=== PATIENT | male | born 1985 | race African-American/Black ===

== ENCOUNTER 2020-07-04 17:21 | Inpatient (IN) | payer SELFPAY ==
[2020-07-04] MEDS ORDERED: Dextrose 50% Abboject 50 ML SYRINGE SLOW IVP PRN (22:07)
[2020-07-04] MEDS ORDERED: Dextrose 5% in Water 1,000 ML IV PRN (22:07)
[2020-07-04 22:42] VITALS: BMI 31.4
[2020-07-04] MEDS: Sodium Chloride 0.9% 1,000 ML IV SCH (22:44)
--- NOTE | 2020-07-04 22:55 | PDOC.BPN ---
- Brief Progress Note [id number] dictated
--- NOTE | 2020-07-05 02:30 | HP ---
CHIEF COMPLAINT: Body aches, fatigue, fever, and chills. HISTORY OF PRESENT ILLNESS: Mr. Shine is a 35-year-old male with past medical history of diabetes mellitus and hypertension, presents to [facility] with body aches, fever, and chills for the last few days. The patient has been having fever for the last 2 days. Also, the patient has been having diarrhea. Workup in the emergency room including chest x-ray shows bilateral infiltrates suspicious of viral pneumonia. The patient also was found to be in acute renal failure with elevated creatinine of more than 2. The patient denies any past renal issues. Also, he was found to have elevated blood glucose. Glucose was more than 400, at 446. Creatinine was 2.62. WBC is 8.5, hemoglobin 13.7, and platelets 247. Septic workup done in the ED. Started on IV antibiotics. The patient sent to our medical facility for continued management. COVID-19 test sent, results are pending. The patient is being admitted to hospital for further management. PAST MEDICAL HISTORY: 1. Hypertension. 2. Hyperlipidemia. PAST SURGICAL HISTORY: Reviewed and not pertinent. FAMILY HISTORY: Reviewed and noncontributory. HOME MEDICATIONS: See home medication reconciliation form for updated medications. ALLERGIES: NO KNOWN ALLERGIES. SOCIAL HISTORY: He denies smoking, drug use, or alcohol use. REVIEW OF SYSTEMS: Review of 14 systems is negative except what is mentioned in the history of present illness. PHYSICAL EXAMINATION: GENERAL: The patient is awake, alert, does not appear to be in acute distress. VITAL SIGNS: Blood pressure is 140/90, oxygen saturation 95% on room air, respiratory rate is 16, and temperature 99.6. HEAD AND NECK: Normocephalic, atraumatic. Neck is supple. No JVD. CHEST: Fair bilateral air entry. HEART: S1, S2. Regular. ABDOMEN: Soft, nontender. Bowel sounds present. NEUROLOGIC: Awake, alert, oriented. No focal deficit. PSYCH: Unable to assess. EXTREMITIES: No clubbing. No cyanosis. LABORATORY DATA: As mentioned above in the history of present illness. IMAGING DATA: Chest x-ray as mentioned above in the history of present illness. ASSESSMENT: 1. Acute kidney injury/acute renal failure. 2. Suspected COVID-19 virus infection. 3. Pneumonia, probably viral. 4. Hypertension. 5. Diabetes mellitus with hyperglycemia. PLAN: 1. Admit. 2. COVID-19 test sent, we will follow the results. 3. Isolation precautions for now. 4. IV fluids were started for acute kidney injury. We will continue it judiciously and reassess in a.m. 5. Monitor kidney function and urine output. 6. Monitor and control blood glucose. 7. Reconcile home medications. 8. DVT prophylaxis as appropriate. 9. Expected length of stay, 2 midnights. Job ID: [id number]
[2020-07-05 05:42] LABS: SARS-CoV-2 MS2 Positive; SARS-CoV-2 N Gene Positive; SARS-CoV-2 S Gene Positive; SARS-CoV-2 by NAA DETECTED (NotDetected); SARS-CoV-2 orf1ab Positive
[2020-07-05 05:46] LABS: #Lymphocytes 1.1 thou/uL (1.20-3.40); #Monocytes 0.5 thou/uL (0.11-0.59); #Neutrophils 7.4 thou/uL (1.40-6.50); %Basophils 0.2 % (0.0-1.0); %Eosinophils 0.1 % (0.0-10.0); %Lymphocytes 11.8 % (21.0-51.0); %Monocytes 5.4 % (0.0-10.0); %Neutrophils 82.5 % (42.0-75.0); Hemoglobin 12.8 g/dL (14.0-18.0); Mean Corpuscular HGB CONC 34.5 g/dL (32.0-36.0); Mean Corpuscular Hemoglobin 29.8 pg (27.0-31.0); Mean Corpuscular Volume 86.4 fL (78.0-98.0); Mean Platelet Volume 7.4 fL (7.4-10.4); Platelet Count 277 thou/uL (130-400); RBC Distribution Width 12.5 % (11.5-14.5)
[2020-07-05 06:10] LABS: Anion Gap 15 mmol/L (10-20); BUN (Urea Nitrogen) 28 mg/dL (8.9-20.6); Calc. Creatinine Clearance 68 mL/min (70-130); Calcium 7.7 mg/dL (7.8-10.44); Carbon Dioxide 21 mmol/L (22-29); Chloride 100 mmol/L (98-107); Glucose 333 mg/dL (70-105); Potassium 3.4 mmol/L (3.5-5.1); Sodium 133 mmol/L (136-145)
[2020-07-05] MEDS: HumaLOG 300 UNITS/3 ML VIAL SC PRN ×3 (06:36→16:47)
[2020-07-05] MEDS: Guaifenesin DM 100-10/5 ML UDCUP PO PRN ×3 (08:06→20:45)
[2020-07-05] MEDS: Famotidine/PF 20 mg/2ml Vial SLOW IVP SCH ×2 (08:07→20:45)
[2020-07-05] MEDS: Acetaminophen 325 MG TAB PO PRN ×2 (08:07→15:26)
[2020-07-05] MEDS: Sodium Chloride 0.9% 1,000 ML IV SCH (08:21)
[2020-07-05 10:29] LABS: Hemoglobin A1c Greater than 14.0 % (4.0-6.0)
[2020-07-05] MEDS ORDERED: cefTRIAXone\\ROCEPHIN 1 GM in Sodium Chloride 0.9% 100 ML IVPB SCH (16:00)
[2020-07-05] MEDS ORDERED: Azithromycin 500 MG in Sodium Chloride 0.9% 250 ML 250 ML IVPB SCH (17:00)
[2020-07-05] MEDS ORDERED: FLU VACC QS2020-21(6MOS UP)/PF 60 MCG/0.5 ML SYRINGE IM ONE (21:00)
[2020-07-06] MEDS: Sodium Chloride 0.9% 1,000 ML IV SCH ×4 (00:45→23:48)
[2020-07-06] MEDS: HumaLOG 300 UNITS/3 ML VIAL SC PRN ×2 (06:18→11:25)
[2020-07-06] MEDS: Guaifenesin DM 100-10/5 ML UDCUP PO PRN ×3 (06:25→21:37)
[2020-07-06] MEDS ORDERED: Insulin Glargine 20 UNITS in Pre-Filled Syringe 1 EACH SC SCH (09:15)
[2020-07-06] MEDS: Famotidine/PF 20 mg/2ml Vial SLOW IVP SCH ×2 (09:22→21:01)
[2020-07-06] MEDS: Acetaminophen 325 MG TAB PO PRN ×2 (09:27→16:53)
[2020-07-06 10:00] LABS: #Lymphocytes 1.2 thou/uL (1.20-3.40); #Monocytes 0.6 thou/uL (0.11-0.59); #Neutrophils 5.3 thou/uL (1.40-6.50); %Basophils 0.1 % (0.0-1.0); %Eosinophils 0.5 % (0.0-10.0); %Lymphocytes 17.2 % (21.0-51.0); %Monocytes 8.8 % (0.0-10.0); %Neutrophils 73.4 % (42.0-75.0); Hemoglobin 12.3 g/dL (14.0-18.0); Mean Corpuscular HGB CONC 34.6 g/dL (32.0-36.0); Mean Corpuscular Hemoglobin 29.9 pg (27.0-31.0); Mean Corpuscular Volume 86.4 fL (78.0-98.0); Mean Platelet Volume 7.7 fL (7.4-10.4); Platelet Count 308 thou/uL (130-400); RBC Distribution Width 12.5 % (11.5-14.5); Red Blood Cell (RBC) Count 4.11 mill/uL (4.70-6.10); White Blood Cell (WBC) Count 7.2 thou/uL (4.8-10.8)
[2020-07-06 10:34] LABS: Anion Gap 12 mmol/L (10-20); BUN (Urea Nitrogen) 28 mg/dL (8.9-20.6); Calc. Creatinine Clearance 67 mL/min (70-130); Calcium 7.2 mg/dL (7.8-10.44); Carbon Dioxide 22 mmol/L (22-29); Chloride 102 mmol/L (98-107); Glucose 187 mg/dL (70-105); Sodium 133 mmol/L (136-145)
[2020-07-06] MEDS ORDERED: Potassium Chloride 20 MEQ TAB PO SCH (10:45)
[2020-07-06] MEDS ORDERED: HumuLIN 70/30 (300 UNITS/3 ML VIAL) SC SCH (16:30)
[2020-07-06] MEDS: Sodium Bicarbonate Tab 325 MG TAB PO SCH ×2 (16:45→21:03)
[2020-07-06] MEDS: HumuLIN 70/30 (300 UNITS/3 ML VIAL) SC SCH (17:20)
--- NOTE | 2020-07-06 18:43 | PDOC.HOSPP ---
- Subjective Encounter Date: 07/06/20 Subjective: The patient denies any new complaints today. - Objective Vital Signs & Weight: Vital Signs (12 hours) Temp Pulse Resp BP Pulse Ox 07/06/20 16:48 98.4 F 88 20 160/100 H 96 07/06/20 11:35 98.4 F 74 18 162/98 H 96 07/06/20 08:18 98.2 F 87 22 H 153/101 H 98 07/06/20 08:00 98 Weight Admit Weight 244 lb 11.408 oz Weight 244 lb 11.41 oz I&O: 07/05/20 07/06/20 07/07/20 06:59 06:59 06:59 Intake Total 2255 Balance 2255 Result Diagrams: 07/06/20 09:33 07/06/20 09:33 Additional Labs: Accuchecks 07/06/20 07/06/20 07/05/20 10:47 04:08 21:02 POC Glucose 171 H 215 H 182 H 07/05/20 15:59 POC Glucose 238 H Hospitalist ROS - Medication Medications: Active Medications Generic Name Dose Route Start Last Admin Trade Name Freq PRN Reason Stop Dose Admin Acetaminophen 650 mg 07/04/20 22:00 07/06/20 16:53 Acetaminophen 325 Mg Tab PO 650 mg Q4H PRN Administration Headache/Fever/Mild Pain (1-3) Famotidine 20 mg 07/05/20 09:00 07/06/20 09:22 Famotidine/Pf 20 Mg/2ml Vial SLOW IVP 20 mg Q12HR RICA Administration Guaifenesin/Dextromethorphan 15 ml 07/04/20 22:00 07/06/20 16:54 Guaifenesin Dm 100-10/5 Ml Udcup PO 15 ml Q4H PRN Administration Cough Sodium Chloride 1,000 mls @ 150 mls/hr 07/06/20 10:39 07/06/20 16:54 Normal Saline 0.9% IV 1,000 mls .Q6H40M RICA Administration Insulin Human Isoph/Insulin Regular 12 units 07/06/20 16:30 07/06/20 17:20 Humulin 70/30 (300 Units/3 Ml Vial) SC 12 unit BID-AC RICA Administration Insulin Human Lispro 0 units 07/04/20 22:07 07/06/20 11:25 Humalog 300 Units/3 Ml Vial SC 2 unit .MODERATE SLIDING SC PRN Administration Moderate Correctional Scale Sodium Bicarbonate 325 mg 07/06/20 15:00 07/06/20 16:45 Sodium Bicarbonate Tab 325 Mg Tab PO 325 mg TID RICA Administration - Exam General Appearance: awake alert ENT: normocephalic atraumatic Neck: supple, no JVD Respiratory: normal chest expansion, no tachypnea Extremities: no cyanosis, no clubbing Neurological: cranial nerve grossly intact, no focal deficits Hosp A/P (1) COVID-19 Code(s): U07.1 - COVID-19 Status: Acute (2) Uncontrolled diabetes mellitus Code(s): E11.65 - TYPE 2 DIABETES MELLITUS WITH HYPERGLYCEMIA Status: Acute (3) YESI (acute kidney injury) Code(s): N17.9 - ACUTE KIDNEY FAILURE, UNSPECIFIED Status: Acute - Plan COVID-19 without respiratory failure. No specific therapy is recommended. Creatinine level remains elevated. This could represent acute renal failure versus chronic kidney disease related to diabetic nephropathy. His A1c is elevated at 14. Insulin 70/30 was initiated. Monitor his sugar over the next 24 hours. Diabetic education.
[2020-07-07] MEDS: Guaifenesin DM 100-10/5 ML UDCUP PO PRN ×4 (03:17→20:45)
[2020-07-07] MEDS: Acetaminophen 325 MG TAB PO PRN ×4 (03:17→20:45)
[2020-07-07 06:13] LABS: #Basophils 0.1 thou/uL (0.0-0.2); #Eosinphils 0.1 thou/uL (0.0-0.7); #Lymphocytes 1.3 thou/uL (1.20-3.40); #Monocytes 0.7 thou/uL (0.11-0.59); #Neutrophils 6.1 thou/uL (1.40-6.50); %Basophils 0.8 % (0.0-1.0); %Eosinophils 0.7 % (0.0-10.0); %Lymphocytes 15.4 % (21.0-51.0); %Monocytes 8.7 % (0.0-10.0); %Neutrophils 74.5 % (42.0-75.0); Hemoglobin 11.7 g/dL (14.0-18.0); Mean Corpuscular HGB CONC 35.2 g/dL (32.0-36.0); Mean Corpuscular Volume 85.3 fL (78.0-98.0); Mean Platelet Volume 7.6 fL (7.4-10.4); Platelet Count 335 thou/uL (130-400); RBC Distribution Width 12.7 % (11.5-14.5); Red Blood Cell (RBC) Count 3.91 mill/uL (4.70-6.10); White Blood Cell (WBC) Count 8.2 thou/uL (4.8-10.8)
[2020-07-07] MEDS: Sodium Chloride 0.9% 1,000 ML IV SCH (06:28)
[2020-07-07 06:43] LABS: Anion Gap 13 mmol/L (10-20); BUN (Urea Nitrogen) 26 mg/dL (8.9-20.6); Calc. Creatinine Clearance 73 mL/min (70-130); Calcium 6.8 mg/dL (7.8-10.44); Carbon Dioxide 19 mmol/L (22-29); Chloride 105 mmol/L (98-107); Glucose 148 mg/dL (70-105); Potassium 3.2 mmol/L (3.5-5.1); Sodium 134 mmol/L (136-145)
[2020-07-07] MEDS: HumuLIN 70/30 (300 UNITS/3 ML VIAL) SC SCH ×2 (07:53→16:52)
[2020-07-07] MEDS: Famotidine/PF 20 mg/2ml Vial SLOW IVP SCH ×2 (07:54→20:13)
[2020-07-07] MEDS: Sodium Bicarbonate Tab 325 MG TAB PO SCH ×3 (07:54→20:13)
[2020-07-07] MEDS ORDERED: Insulin Glargine 20 UNITS in Pre-Filled Syringe 1 EACH SC SCH (09:00)
--- NOTE | 2020-07-07 17:50 | PDOC.HOSPP ---
- Subjective Encounter Date: 07/07/20 Subjective: He is complaining of congestion and cough. - Objective Vital Signs & Weight: Vital Signs (12 hours) Temp Pulse Resp BP Pulse Ox 07/07/20 16:00 97.9 F 76 20 146/84 H 95 07/07/20 11:00 98.1 F 76 20 154/85 H 96 07/07/20 08:00 93 L 07/07/20 07:00 98.3 F 92 22 H 135/87 93 L Weight Admit Weight 244 lb 11.408 oz Weight 244 lb 11.41 oz I&O: 07/06/20 07/07/20 07/08/20 06:59 06:59 06:59 Intake Total 2255 Balance 2255 Result Diagrams: 07/07/20 05:47 07/07/20 05:47 Additional Labs: Accuchecks 07/07/20 07/07/20 07/06/20 11:40 06:10 21:10 POC Glucose 85 143 H 179 H 07/06/20 16:24 POC Glucose 169 H Hospitalist ROS - Medication Medications: Active Medications Generic Name Dose Route Start Last Admin Trade Name Freq PRN Reason Stop Dose Admin Acetaminophen 650 mg 07/04/20 22:00 07/07/20 11:52 Acetaminophen 325 Mg Tab PO 650 mg Q4H PRN Administration Headache/Fever/Mild Pain (1-3) Famotidine 20 mg 07/05/20 09:00 07/07/20 07:54 Famotidine/Pf 20 Mg/2ml Vial SLOW IVP 20 mg Q12HR RICA Administration Guaifenesin/Dextromethorphan 15 ml 07/04/20 22:00 07/07/20 11:52 Guaifenesin Dm 100-10/5 Ml Udcup PO 15 ml Q4H PRN Administration Cough Insulin Human Isoph/Insulin Regular 12 units 07/06/20 16:30 07/07/20 07:53 Humulin 70/30 (300 Units/3 Ml Vial) SC 12 unit BID-AC RICA Administration Insulin Human Lispro 0 units 07/04/20 22:07 07/06/20 11:25 Humalog 300 Units/3 Ml Vial SC 2 unit .MODERATE SLIDING SC PRN Administration Moderate Correctional Scale Sodium Bicarbonate 325 mg 07/06/20 15:00 07/07/20 07:54 Sodium Bicarbonate Tab 325 Mg Tab PO 325 mg TID RICA Administration - Exam General Appearance: awake alert ENT: normocephalic atraumatic Neck: supple, no JVD Respiratory: normal chest expansion, no tachypnea Gastrointestinal: soft Extremities: no cyanosis Hosp A/P (1) COVID-19 Code(s): U07.1 - COVID-19 Status: Acute (2) Uncontrolled diabetes mellitus Code(s): E11.65 - TYPE 2 DIABETES MELLITUS WITH HYPERGLYCEMIA Status: Acute (3) YESI (acute kidney injury) Code(s): N17.9 - ACUTE KIDNEY FAILURE, UNSPECIFIED Status: Acute - Plan COVID-19 without respiratory failure. No specific therapy is recommended. Creatinine level Improving. This could represent acute renal failure versus chronic kidney disease related to diabetic nephropathy. DC IVF due to worsening congestion. His A1c is elevated at 14. Insulin 70/30 was initiated and sugar levels improved.
[2020-07-08] MEDS: Acetaminophen 325 MG TAB PO PRN ×4 (05:06→20:59)
[2020-07-08 06:13] LABS: #Eosinphils 0.1 thou/uL (0.0-0.7); #Lymphocytes 1.3 thou/uL (1.20-3.40); #Monocytes 0.8 thou/uL (0.11-0.59); #Neutrophils 5.8 thou/uL (1.40-6.50); %Basophils 0.4 % (0.0-1.0); %Eosinophils 1.1 % (0.0-10.0); %Lymphocytes 16.4 % (21.0-51.0); %Monocytes 10.2 % (0.0-10.0); Hemoglobin 12.1 g/dL (14.0-18.0); Mean Corpuscular HGB CONC 35.8 g/dL (32.0-36.0); Mean Corpuscular Hemoglobin 31.3 pg (27.0-31.0); Mean Corpuscular Volume 87.6 fL (78.0-98.0); Mean Platelet Volume 7.7 fL (7.4-10.4); Platelet Count 407 thou/uL (130-400); RBC Distribution Width 12.8 % (11.5-14.5); Red Blood Cell (RBC) Count 3.85 mill/uL (4.70-6.10); White Blood Cell (WBC) Count 8.1 thou/uL (4.8-10.8)
[2020-07-08 06:38] LABS: Anion Gap 12 mmol/L (10-20); BUN (Urea Nitrogen) 22 mg/dL (8.9-20.6); Calc. Creatinine Clearance 75 mL/min (70-130); Calcium 7.3 mg/dL (7.8-10.44); Carbon Dioxide 18 mmol/L (22-29); Chloride 108 mmol/L (98-107); Glucose 78 mg/dL (70-105); Potassium 3.1 mmol/L (3.5-5.1); Sodium 135 mmol/L (136-145)
[2020-07-08] MEDS: HumuLIN 70/30 (300 UNITS/3 ML VIAL) SC SCH ×2 (09:06→16:30)
[2020-07-08] MEDS: Sodium Bicarbonate Tab 325 MG TAB PO SCH ×3 (09:06→20:58)
[2020-07-08] MEDS: Famotidine/PF 20 mg/2ml Vial SLOW IVP SCH ×2 (09:06→20:57)
[2020-07-08] MEDS ORDERED: Potassium Chloride 20 MEQ TAB PO SCH (10:15)
[2020-07-08] MEDS: Guaifenesin DM 100-10/5 ML UDCUP PO PRN ×3 (11:46→21:00)
[2020-07-08] MEDS ORDERED: Amlodipine 10 MG TAB PO SCH (16:15)
--- NOTE | 2020-07-08 16:21 | PDOC.HOSPP ---
- Subjective Encounter Date: 07/08/20 Subjective: No new complaints. - Objective Vital Signs & Weight: Vital Signs (12 hours) Temp Pulse Resp BP Pulse Ox 07/08/20 15:35 97.9 F 77 16 172/122 H 97 07/08/20 11:51 98.6 F 78 16 156/102 H 96 07/08/20 08:20 97.6 F 83 16 144/92 H 96 07/08/20 08:00 96 07/08/20 05:05 97.7 F 85 18 135/84 97 Weight Admit Weight 244 lb 11.408 oz Weight 244 lb 11.41 oz I&O: 07/07/20 07/08/20 07/09/20 06:59 06:59 06:59 Intake Total 720 Balance 720 Result Diagrams: 07/08/20 05:18 07/08/20 05:18 Additional Labs: Accuchecks 07/08/20 07/08/20 07/08/20 15:33 11:48 04:59 POC Glucose 128 H 90 85 07/07/20 20:21 POC Glucose 157 H Hospitalist ROS - Medication Medications: Active Medications Generic Name Dose Route Start Last Admin Trade Name Freq PRN Reason Stop Dose Admin Acetaminophen 650 mg 07/04/20 22:00 07/08/20 11:43 Acetaminophen 325 Mg Tab PO 650 mg Q4H PRN Administration Headache/Fever/Mild Pain (1-3) Famotidine 20 mg 07/05/20 09:00 07/08/20 09:06 Famotidine/Pf 20 Mg/2ml Vial SLOW IVP 20 mg Q12HR RICA Administration Guaifenesin/Dextromethorphan 15 ml 07/04/20 22:00 07/08/20 11:46 Guaifenesin Dm 100-10/5 Ml Udcup PO 15 ml Q4H PRN Administration Cough Insulin Human Isoph/Insulin Regular 12 units 07/06/20 16:30 07/08/20 09:06 Humulin 70/30 (300 Units/3 Ml Vial) SC 12 unit BID-AC RICA Administration Insulin Human Lispro 0 units 07/04/20 22:07 07/06/20 11:25 Humalog 300 Units/3 Ml Vial SC 2 unit .MODERATE SLIDING SC PRN Administration Moderate Correctional Scale Sodium Bicarbonate 325 mg 07/06/20 15:00 07/08/20 09:06 Sodium Bicarbonate Tab 325 Mg Tab PO 325 mg TID RICA Administration - Exam General Appearance: awake alert ENT: normocephalic atraumatic Neck: supple Heart: RRR Respiratory: normal chest expansion, no tachypnea Gastrointestinal: soft Neurological: cranial nerve grossly intact, no focal deficits Hosp A/P (1) COVID-19 Code(s): U07.1 - COVID-19 Status: Acute (2) Uncontrolled diabetes mellitus Code(s): E11.65 - TYPE 2 DIABETES MELLITUS WITH HYPERGLYCEMIA Status: Acute (3) YESI (acute kidney injury) Code(s): N17.9 - ACUTE KIDNEY FAILURE, UNSPECIFIED Status: Acute - Plan COVID-19 without respiratory failure. No specific therapy is recommended. Creatinine level Improving. This could represent acute renal failure versus chronic kidney disease related to diabetic nephropathy. DC IVF due to worsening congestion. His A1c is elevated at 14. Insulin 70/30 was initiated and sugar levels improved. Start amlodipine 2 mg orally daily for uncontrolled hypertension.
[2020-07-09] MEDS: Guaifenesin DM 100-10/5 ML UDCUP PO PRN (02:34)
[2020-07-09] MEDS: Acetaminophen 325 MG TAB PO PRN ×3 (02:34→10:03)
[2020-07-09] MEDS ORDERED: hydrALAZINE 20 MG/ML VIAL SLOW IVP SCH (03:15)
[2020-07-09 06:21] LABS: #Eosinphils 0.1 thou/uL (0.0-0.7); #Lymphocytes 1.2 thou/uL (1.20-3.40); #Monocytes 0.6 thou/uL (0.11-0.59); #Neutrophils 5.6 thou/uL (1.40-6.50); %Basophils 0.5 % (0.0-1.0); %Eosinophils 1.5 % (0.0-10.0); %Lymphocytes 15.9 % (21.0-51.0); %Monocytes 8.2 % (0.0-10.0); Hemoglobin 11.9 g/dL (14.0-18.0); Mean Corpuscular HGB CONC 34.7 g/dL (32.0-36.0); Mean Corpuscular Hemoglobin 29.6 pg (27.0-31.0); Mean Corpuscular Volume 85.3 fL (78.0-98.0); Mean Platelet Volume 7.4 fL (7.4-10.4); Platelet Count 505 thou/uL (130-400); Red Blood Cell (RBC) Count 4.02 mill/uL (4.70-6.10); White Blood Cell (WBC) Count 7.6 thou/uL (4.8-10.8)
[2020-07-09 06:42] LABS: Anion Gap 13 mmol/L (10-20); BUN (Urea Nitrogen) 19 mg/dL (8.9-20.6); Calc. Creatinine Clearance 73 mL/min (70-130); Calcium 7.6 mg/dL (7.8-10.44); Carbon Dioxide 19 mmol/L (22-29); Chloride 107 mmol/L (98-107); Glucose 127 mg/dL (70-105); Potassium 3.2 mmol/L (3.5-5.1); Sodium 136 mmol/L (136-145)
[2020-07-09] MEDS ORDERED: Amlodipine 10 MG TAB PO SCH (09:00)
[2020-07-09] MEDS ORDERED: Famotidine 20 MG TAB PO SCH (09:00)
[2020-07-09 09:07] VITALS: TEMP 98.1
[2020-07-09] MEDS: Sodium Bicarbonate Tab 325 MG TAB PO SCH (10:03)
[2020-07-09] MEDS: HumuLIN 70/30 (300 UNITS/3 ML VIAL) SC SCH ×2 (10:03→12:55)
[2020-07-09 12:57] VITALS: BP 161/110
--- NOTE | 2020-07-10 23:43 | PQF ---
CLINICAL DOCUMENTATION CLARIFICATION FORM: Dear : Sheela Mccoy Date / Time: 07/11/2020 Please exercise your independent, professional judgment in responding to the clarification form. Clinical indicators are provided on the bottom of this form for your review Please check appropriate box(es) to clarify if the following diagnosis has been ruled in our ruled out: Pneumonia [ > ] Ruled in diagnosis [ > ] Continue to treat [ ] Resolved [ ] Ruled out diagnosis [ ] Improving [ ] Cannot rule out diagnosis [ ] Other diagnosis [ ] Unable to determine In addition, please specify: Present on Admission (POA): [ >] Yes [ ] No [ ] Unable to determine To be completed by CDI/Coding staff for physician review: Present Clinical Indicators - Signs / Symptoms / Labs Results and Location in Medical Record [ x ] Pneumonia, probably viral H and P [ x ] Workup in the emergency room including chest x-ray shows bilateral infiltrates suspicious of viral pneumonia H and P [ x ] Septic workup done in the ED. Started on IV antibiotics H and P Present Risk Factors Results and Location in Medical Record [ x ] Covid-19 Progress note 07/08 by Sheela Duke Present Treatments Results and Location in Medical Record [ x ] IV Zithromax 07/04-07/05 Medications [ x ] IV Rocephin 07/04-07/05 Medications CDS/Sde Signature: SJ1 Phone #: Date/Time: 07/11/2020 This is a permanent part of the Medical Record [facility]
--- NOTE | 2020-07-10 23:57 | PQF ---
CLINICAL DOCUMENTATION CLARIFICATION FORM: Dear : Sheela Mccoy Date / Time: 07/11/2020 Please exercise your independent, professional judgment in responding to the clarification form. Clinical indicators are provided on the bottom of this form for your review Please check appropriate box(es): [> ] Sepsis [ ] Localized infection without sepsis [ ] Other diagnosis [ ] Unable to determine In addition, please specify: Present on Admission (POA): [ > ] Yes [ ] No [ ] Unable to determine To be completed by CDI/Coding staff for physician review: Present Clinical Indicators - Signs / Symptoms / Labs Results and Location in Medical Record [ x ] Septic workup done in the ED. Started on IV antibiotics H and P [ x ] Respiratory rate is 24. Heart rate is 94. Blood pressures are 153/98 and 1589/98 Vital signs [ x ] Covid-19 virus infection. Pneumonia, probably viral H and P Present Risk Factors Results and Location in Medical Record [ x ] Covid-19, acute kidney injury, diabetes with hyperglycemia H and P Present Treatments Results and Location in Medical Record [ x ] IV Zithromax 07/04-07/05 Medications [ x ] IV Rocephin 07/04-07/05 Medications [ x ] IV fluids 07/04-07/09 Medications [ x ] Daily CBCs Laboratory CDS/Test Lead Signature: SJ1 Phone #: Date/Time: 07/11/2020 This is a permanent part of the Medical Record [facility]
== END 2020-07-09 15:11 | disposition home or self-care (01) | DRG 871 ==
LOC: OBSVTOIN 17:21 → T4-A 17:21
PROVIDERS: ADMIT Family Medicine; ATTEND Internal Medicine
PROC: 8E0ZXY6 Isolation (ICD-10-PCS; principal; 2020-07-04)
DX: A41.89 Other specified sepsis (principal); U07.1 COVID-19; J12.89 Other viral pneumonia; N17.9 Acute kidney failure, unspecified; E78.5 Hyperlipidemia, unspecified; E11.65 Type 2 diabetes mellitus with hyperglycemia; E11.22 Type 2 diabetes mellitus with diabetic chronic kidney disease; I12.9 Hypertensive chronic kidney disease with stage 1 through stage 4 chronic kidney disease, or unspecified chronic kidney disease
CPT/HCPCS: 36415; 36416; 80048; 83036; 84145; 85025; 87635; J0360; S0028; U0003